=== PATIENT | female | born 1995 | race Caucasian/White ===

== ENCOUNTER → 2020-12-09 08:26 | Outpatient (CLI) | payer BC, SELFPAY ==
[2020-12-09 10:17] LABS: HCG Quantitative /Beta subunit 23470 mIU/mL
== END ==
PROVIDERS: PCP Physician Assistant; Referring Provider Nurse Practitioner Obstetrics & Gynecology; Visit Provider Nurse Practitioner Obstetrics & Gynecology
DX: N91.2 Amenorrhea, unspecified (principal)
CPT/HCPCS: 36415; 84702

== ENCOUNTER → 2020-12-11 15:57 | Outpatient (CLI) | payer BC, SELFPAY ==
[2020-12-11 20:19] LABS: HCG Quantitative /Beta subunit 42649 mIU/mL
== END ==
PROVIDERS: PCP Physician Assistant; Referring Provider Nurse Practitioner Obstetrics & Gynecology; Visit Provider Nurse Practitioner Obstetrics & Gynecology
DX: N91.2 Amenorrhea, unspecified (principal); O26.851 Spotting complicating pregnancy, first trimester
CPT/HCPCS: 36415; 84702

== ENCOUNTER → 2021-03-21 08:39 | Outpatient (CLI) | payer BC, SELFPAY ==
--- NOTE | 2021-03-21 | DI.US.S_ITS ---
PROCEDURE: US OB >= 14 WEEKS FETUS INDICATIONS: 20 WEEK ANATOMY OUTSIDE/PRIOR DATING DATA: Last menstrual period (LMP): 11/06/2020. LMP-based estimated date of delivery (ABDIRIZAK): 08/03/2021 First dating scan (date and location): 03/21/2021 at [facility] Estimated date of delivery (ABDIRIZAK) from first dating scan: 08/03/2021 TECHNIQUE: Real-time scanning was performed of the fetus, with image documentation and biometric measurements. Endovaginal scanning: Not performed. COMPARISON: None. FINDINGS: General: A single living intrauterine gestation is present. Presentation: Breech. Placenta: Placental position is anterior, without previa. Amniotic fluid index: 15.2 cm, normal range is 5-24 cm. Largest pocket 4.5 cm. heart rate: 157 beats per minute. Maternal cervical canal: 3.5 cm in length. biometrics: Biparietal diameter: 4.7 cm, 20 weeks 2 days Head circumference: 18.2 cm, 20 weeks 4 days Abdominal circumference: 16.9 cm, 21 weeks 6 days Femur length: 3.3 cm, 20 weeks 2 days Estimated gestational age from initial scan: not applicable. Composite gestational age from present scan: 20 weeks 5 days Estimated weight and percentile: 396 grams, 64th percentile Measurement variability for biometric dating: +/- 7 days from 14 weeks to 15 weeks 6 days gestation, +/- 10 days from 16 weeks to 21 weeks 6 days gestation, +/- 2 weeks from 22 weeks to 27 weeks 6 days gestation, +/- 3 weeks for 28 weeks gestation or later. weight reference: 4500 g or EFW >90/95% is considered macrosomia or large for gestational age. EFW <10% is small for gestational age. EFW 5% or less is considered intra-uterine growth restriction. Anatomic survey: Neuro: Ventricles are non-dilated at less than 10 mm. Cisterna magna is normal at 3-11 mm. Cerebellum is normal in size and morphology. Nuchal skin fold: Normal at less than 6 mm between 14-21 weeks gestational age. Face: Nose and lips, facial profile are normal. Spine: No evidence for spina bifida. Heart: 4-chambered heart is present, with normal ventricular outflow tracts. Diaphragm: Diaphragm is intact. Stomach: Left-sided stomach is present. Kidneys: No hydronephrosis. Normal is less than 5 mm in 2nd trimester, less than 7 mm in 3rd trimester. Cord: 3-vessel cord has orthotopic insertion. Bladder: Normal in size. Extremities: All 4 extremities identified. IMPRESSION: 1. Single live intrauterine with estimated gestational age of 20 weeks 5 days. 2. Normal anatomic survey. Dictated by: Hector Valladares M.D. on 03/21/2021 at 13:31 Approved by: Hector Valladares M.D. on 03/21/2021 at 13:39
== END ==
PROVIDERS: PCP Physician Assistant; Referring Provider Nurse Practitioner Obstetrics & Gynecology; Visit Provider Nurse Practitioner Obstetrics & Gynecology
DX: Z34.92 Encounter for supervision of normal pregnancy, unspecified, second trimester (principal); Z3A.20 20 weeks gestation of pregnancy
CPT/HCPCS: 76811

== ENCOUNTER → 2021-05-16 14:42 | Outpatient (CLI) | payer BC, SELFPAY ==
--- NOTE | 2021-05-16 | DI.US.S_ITS ---
PROCEDURE: US OB LIMITED INDICATIONS: CERVICAL LENGTH OUTSIDE/PRIOR DATING DATA: Last menstrual period (LMP): October 27, 2020 . LMP-based estimated date of delivery (ABDIRIZAK): August 03, 2021 . First dating scan (date and location): [facility]; March 21, 2021 . Estimated date of delivery (ABDIRIZAK) from first dating scan: August 03, 2021 . TECHNIQUE: Real-time scanning was performed of the fetus, with image documentation. COMPARISON: March 21, 2021. FINDINGS: A single living intrauterine gestation is present. Presentation: Cephalic. Placenta: Placental position is anterior , without previa. Amniotic fluid index: 14.3 cm, normal range is 5-24 cm. heart rate: 152 beats per minute. Maternal cervical canal: 4.4 cm long. Normal lower limit is 2.5 cm. Estimated gestational age from initial scan: 28 weeks, 5 days . IMPRESSION: Live single intrauterine gestation as detailed above. Dictated by: Matthew Bear M.D. on 05/16/2021 at 16:05 Approved by: Matthew Bear M.D. on 05/16/2021 at 16:07
== END ==
PROVIDERS: PCP Physician Assistant; Referring Provider Nurse Practitioner Obstetrics & Gynecology; Visit Provider Nurse Practitioner Obstetrics & Gynecology
DX: Z36.86 Encounter for antenatal screening for cervical length (principal); Z3A.28 28 weeks gestation of pregnancy
CPT/HCPCS: 76815; 76817

== ENCOUNTER → 2021-07-04 14:44 | Outpatient (ROUT) | payer BC, SELFPAY | PROVIDERS: PCP Physician Assistant; Visit Provider Nurse Practitioner Obstetrics & Gynecology | DX: Z34.90 Encounter for supervision of normal pregnancy, unspecified, unspecified trimester (principal); Z36.85 Encounter for antenatal screening for Streptococcus B; Z3A.36 36 weeks gestation of pregnancy | CPT/HCPCS: 87081 ==

== ENCOUNTER 2021-07-28 15:54 | Inpatient (IN) | payer BC, SELFPAY ==
--- NOTE | 2021-07-28 16:11 | PM.OBHP.1 ---
OB HPI Date/Time Date of admission: 07/28/21 Date Patient Seen: 07/28/21 Time Patient Seen: 16:12 History of Present Condition Chief complaint: labor : 3 Para: 1 Estimated Date of Delivery: 08/03/21 Estimated Gestational Age (weeks): 39.1 Narrative: Charity Vidal is a 25 year old female @ [id number] by LMP and early US who presents for evaluation of spontaneous labor. Contrations started this morning and have slowly progressed in frequency and intensity, becoming strong around 1445 this afternoon. +FM and scant pink discharge. No LOF. Uncomplicated care w/ CNM. Planning low intervention . and mother are present and supportive. History of Present care: good care, initiated at week # (10), number of visits (8) and pounds weight gain (28) Dating criteria: LMP confirmed by 1st trimester US Ultrasounds: normal mid trimester US Obstetrical complications: none Medical complications: psychiatric (anxiety- stable on sertraline) Preadmission Labs Blood type: O (+) positive -: Antibody screen: negative, GBS status: negative, HBsAG: negative, HIV: negative and RPR/VDLR: negative -: Chlamydia screen: not detected and Gonorrhea screen: not detected -: Rubella: immune and Varicella: immune HCT: 36.4 HCAB: negative Cell-free DNA: declined 1 hr GTT: 120 Prior (ies) History: 01/12/19: NSVB @ [id number]. 7#7oz female, 3rd degree, epidural 11/09/19: SAB @ 5wks Evaluation Evaluation Baseline heart rate: 155 Variability: Moderate (11-25) monitor accelerations: Present Monitor Decelerations: Absent Contraction Frequency (minutes): 3 Uterine Contraction Intensity: Strong/Firm Status: Category l Dilation (cm): 6.5 Effacement (%): 90 station: -2 Position of cervix: posterior Consistency: soft PFSH Surgical History (Updated 07/28/21 @ 16:22 by Olive Gan CNM) History of placement of ear tubes Family History (Updated 07/28/21 @ 16:22 by Olive Gan CNM) Other Adopted Social History (Updated 07/28/21 @ 16:23 by Olive Gan CNM) marital status: number of children: 1 household members: spouse and children lives independently: Yes caregiver/support person: No Meds Home Medications and Allergies Home Medications Medication Instructions Recorded Confirmed Type sertraline 100 mg tablet mg 07/28/21 History Allergies Allergy/AdvReac Type Severity Reaction Status Date / Time No Known Drug Allergies Allergy Unverified 07/28/21 16:24 Review of Systems Review of Systems ROS: Yes All systems reviewed with the patient and are negative except as otherwise documented OB Exam Resp Effort & Inspection: normal respiratory effort Auscultation: clear to auscultation bilaterally Cardio Rate: regular rate Rhythm: regular rhythm Heart Sounds: S1 normal and S2 normal Presentation: vertex Assessment and Plan Assessment and Plan Assessment and Plan narrative: A: Term primipara Active labor No indication for GBS prophylaxis Cat I FHR P: Admit, routine orders. Rapid COVID screen. Labor support, PRN. Anticipate NSVB.
[2021-07-28 16:36] LABS: COVID19 -Nasal RAPID Negative (Negative)
[2021-07-28 16:51] VITALS: BP 136/88
[2021-07-28 16:58] LABS: Add Manual Diff / Slide Review NO; Basophils Absolute Auto 0 /uL (0-100); Basophils Percent Auto 0.3 % (0-2); Eosinophils Absolute Auto 0 /uL (0-450); Eosinophils Percent Auto 0.2 % (2-4); Hematocrit 40.4 % (36-46); Hemoglobin 13.9 g/dL (12.0-16.0); Lymphocytes Absolute Auto 1200 /uL (1100-4500); Lymphocytes Percent Auto 10.1 % (25-40); Mean Corpuscular HGB Conc 34.3 % (30-36); Mean Corpuscular Hemoglobin 30.2 PG (26-34); Mean Corpuscular Volume 88.2 fL (80-100); Monocytes Absolute Auto 1000 /uL (0-900); Monocytes Percent Auto 7.8 % (3-14); Neutrophils Absolute Auto 10100 /uL (1500-7000); Neutrophils Percent Auto 81.6 % (50-75); Platelet Count 154 X10^3/uL (150-400); Red Blood Cell Count 4.58 X10^6/uL (4.0-5.2); Red Cell Distribution Width 14.9 % (11.6-14.8); White Blood Cell Count 12.4 X10^3/uL (4.5-11.0)
[2021-07-28] MEDS: CALCIUM CARBONATE 500 MG TAB 1000 MG PO (17:06)
[2021-07-28] MEDS: OXYTOCIN 10 UNIT/ML VIAL IM (17:59)
[2021-07-28] MEDS: OXYTOCIN PREMIX 30 UNIT/500 ML PLAST..BAG 200 UNIT IV (18:12)
[2021-07-28] MEDS: miSOPROStoL 200 MCG TABLET 400 MCG SL (18:12)
--- NOTE | 2021-07-28 18:35 | PM.OBPRVD ---
Labor & Delivery Delivery date: 07/28/21 Intrapartal Events: None Cervical ripening method: none Induction method: none Delivery monitor: external FHT Route of delivery: Episiotomy description: None L&D Laceration Description: Perineal - 2nd Degree Delivery repair: chromic (3.0) Estimated blood loss (mL): 600 Anesthesia Type: None Narrative: Charity labored well without medication for analgesia or augmentation. Spontaneous urge to push and presumed complete at 1741. NSVB of a vigorous baby girl in [place] position. SROM for thin meconium w/ delivery of head. There was a loose body cord and the shoulders delivered easily. was lifted to maternal abdomen for drying and skin to skin. Pitocin 10 units IM was given for AMTSL. After cessation of pulsation, the cord was double clamped by CNM and cut by Charity's mother. Gentle cord traction and single maternal push led to a spontaneous, Schultze delivery of an apparently intact placenta, membranes and 3VC. Fundus immediately form and bleeding heavy. 30 units of pitocin in 500mL was started at 300mL/hr and misoprostil 400mcg SL was given for continued heavy bleeding which slowed during repair of 2nd degree perineal laceration. Repair was performed w/ 3.0 Chromic in the usual fashion, under 1% lidocaine local. QBL 600mL. both mother and baby stable and skin to skin as I lfet the room. Baby 1: Infant gender: Female Presentation: vertex Position: Right Occiput Anterior Placenta delivery description: Spontaneous Cord Vessel Description: 3 Vessels and Around Body x1 score (1 min): 9 score (5 min): 9 weight: 3.343 kg Plan for aftercare: Routine care
[2021-07-28] MEDS: SERTRALINE 50 MG TABLET 100 MG PO (21:24)
[2021-07-28] MEDS: METHYLERGONOVINE 0.2 MG TABLET PO (21:24)
[2021-07-28] MEDS: ACETAMINOPHEN 325 MG TABLET 650 MG PO (21:24)
[2021-07-29] MEDS: METHYLERGONOVINE 0.2 MG TABLET PO ×2 (03:31→09:28)
[2021-07-29] MEDS: ACETAMINOPHEN 325 MG TABLET 650 MG PO ×2 (03:31→09:28)
[2021-07-29 09:28] VITALS: TEMP 36.8
--- NOTE | 2021-07-29 11:54 | P.DS_ITS ---
Discharge Providers Provider Date of admission: 07/28/21 15:54 Discharge Date: 07/29/21 Primary care physician: Sheri Gee PA-C Consults: 07/29/21 18:34 Consult to Strategic Advisor Routine Comment: Discharge provider: Olive Gan CNM Summary Hospital Course Date Patient Seen: 07/29/21 Time Patient Seen: 11:55 Diagnoses: o70.1 Hospital Course: Charity is 18 hours s/p NSVB, voiding, ambulating and . vaginal bleeding was heavy last night, slowed to scant w/ PO methergine. Has been minimal x 12 hours. Tolerating a general diet. Pain well controlled w/ PO medication. Peripartum Data Delivery Method: Natural Vaginal Laceration Description: Perineal - 2nd Degree Episiotomy description: None Procedures: o70.1 1: Gender: Female Disposition of : home Discharge Diagnosis (1) Second degree perineal laceration during delivery: Start Date: 07/28/21 Status: Acute Status at Discharge Cognitive/behavioral status at discharge: oriented and calm Functional status at discharge: independent ambulation Overall status at discharge: patient is progressing back to baseline Time Spent with Patient Time attestation: Total time spent providing and/or coordinating discharge services: Time spent: Less than 30 minutes Specific discharge activities: routine teaching Objective Labs Result Diagrams: 07/28/21 16:35 Labs: Laboratory Results - last 24 hr 07/28/21 07/28/21 07/28/21 16:05 16:35 16:35 WBC 12.4 H RBC 4.58 Hgb 13.9 Hct 40.4 MCV 88.2 MCH 30.2 MCHC 34.3 RDW 14.9 H Plt Count 154 Neut % (Auto) 81.6 H Lymph % (Auto) 10.1 L Ross % (Auto) 7.8 Eos % (Auto) 0.2 L Baso % (Auto) 0.3 Neut # (Auto) 29129 H Lymph # (Auto) 1200 Ross # (Auto) 1000 H Eos # (Auto) 0 Baso # (Auto) 0 SARS-CoV-2 (PCR) Negative Blood Type O Positive Antibody Screen Negative Exam Vital Signs (past 8 hours): - 07/29/21 09:28 Temperature 98.2 F BP 120/74, HR 75bpm, RR 16/min, T 98.0 Other: Fundus firm @ U-1, lochia scant, no clots. Perineum well approximated. Discharge Plan Discharge Plan Patient Disposition: Home Discharge orders & Medications Prescriptions: New ibuprofen 600 mg Tablet 600 mg PO Q6H PRN (Reason: Pain, Mild (1-3)) 14 Days Qty: 60 0RF Continued sertraline 100 mg tablet 100 mg PO DAILY 365 Days Qty: 90 4RF Follow up/Referrals: Sheri Gee PA-C [Primary Care Provider] - Olive Gan CNM [[employer] Operator] - (Follow-up by Telehealth 08/10/21 @ 4:15pm Follow-up in office 09/06/21 @ 11am) Diet/Activity/Treatments Diet: Diet as Tolerated Activity: pelvic rest x 6 weeks Visit Report/Discharge Packet Instructions: Depression Discharge Data Primary Care Provider: Sheri Gee Attending Provider: Olive Gan
[2021-07-29 13:34] VITALS: BP 111/74; PULSE 74; RESP 16; TEMP 36.9
[2021-07-29 13:53] VITALS: BP 111/74; PULSE 74; RESP 16; TEMP 36.9
== END 2021-07-29 14:40 | disposition home or self-care (01) | DRG 807 ==
PROVIDERS: Admitting Provider Nurse Practitioner Obstetrics & Gynecology; PCP Physician Assistant; Referring Provider Nurse Practitioner Obstetrics & Gynecology; Visit Provider Nurse Practitioner Obstetrics & Gynecology
DX: O42.02 Full-term premature rupture of membranes, onset of labor within 24 hours of rupture (principal); Z37.0 Single live birth; O99.344 Other mental disorders complicating childbirth; F41.9 Anxiety disorder, unspecified; Z3A.39 39 weeks gestation of pregnancy; O70.1 Second degree perineal laceration during delivery; O77.0 Labor and delivery complicated by meconium in amniotic fluid; O69.81X0 Labor and delivery complicated by cord around neck, without compression, not applicable or unspecified; Z20.822 Contact with and (suspected) exposure to COVID-19
CPT/HCPCS: 36415; 59050; 85025; 86850; 86900; 86901; 87635; C9803; G0378; G0379; J2590; S0191